=== PATIENT | female | born 1970 | race Caucasian/White ===

== ENCOUNTER 2017-08-26 11:33 | Emergency (ER) | payer OTHER ==
--- NOTE | 2017-08-26 11:57 | CPEKG ---
Heart Rate: 56 RR Interval: 1071 P-R Interval: 148 QRSD Interval: 78 QT Interval: 412 QTC Interval: 398 P [place]: 53 QRS [place]: 19 T Wave [place]: -16 EKG Severity - BORDERLINE ECG - EKG Impression: SINUS RHYTHM EKG Impression: BORDERLINE T ABNORMALITIES, INFERIOR LEADS Electronically Signed By: Constantino Govea 27-Aug-2017 14:27:32
[2017-08-26 12:11] LABS: PLATELET COUNT 286 10^3/uL (150-400)
--- NOTE | 2017-08-26 12:19 | EDPHY ---
H & P Stated Complaint: Palpitations, SOB, LE Swelling Time Seen by Provider: 08/26/17 12:05 HPI/ROS: CHIEF COMPLAINT: Palpitations, chest pain, lower extremity edema HISTORY OF PRESENT ILLNESS: 47-year-old female generally healthy and active, nonsmoker no drug use, complaining of 2 weeks of intermittent palpitations, intermittently bilateral lower extremity edema. She exercises regularly. States that yesterday evening when she was exercising she had to prematurely. Her activity secondary to chest pain and palpitations and dyspnea. No prior history of similar. The lower extremity edema is currently resolved however states that yesterday afternoon he was much more pronounced. Patient does not know whether it is related to dependent position or not. PRIMARY CARE PROVIDER: Dr. Kaycee Romero REVIEW OF SYSTEMS: A ten point review of systems was performed and is negative with the exception of the items mentioned in the HPI PAST MEDICAL & SURGICAL HISTORY: x2 . Otherwise no history of cardiac disease. SOCIAL HISTORY:Nonsmoker. No drug use. Works as a civil engineering manager FAMILY HISTORY: No no further relatives or siblings with premature coronary artery disease or vasculopathy history. PHYSICAL EXAM (Prior to examination, patient consented to physical exam, hands were washed and my usual and customary physical exam procedures followed) 1) GENERAL: Well-developed, well-nourished, alert and oriented. Appears to be in no acute distress. 2) HEAD: Normocephalic, atraumatic 3) HEENT: Pupils equal, round, reactive to light bilaterally. Sclera anicteric. Nasopharynx, oropharynx, clear, no lesions. 4) NECK: Full range of motion, no meningeal signs. No carotid bruit 5) LUNGS: Clear auscultation bilaterally, no wheezes, no rhonchi, no retractions. 6) HEART: Regular rate and rhythm, no murmur, no heave, no gallop. No chest wall pain 7) ABDOMEN: No guarding, no rebound, no focal tenderness, negative McBurney's, negative Chowdhury's, negative Rovsing's, negative peritoneal sign, 8) MUSCULOSKELETAL: Moving all extremities, no focal areas of tenderness, no obvious trauma. No peripheral edema or discoloration. Negative Homans no palpable cord. Normal color and temperature bilaterally. No visible edema. 9) BACK: No CVA tenderness, no midline vertebral tenderness, no fluctuance, no step-off, no obvious trauma, no visual or palpable abnormality. 10) SKIN: No rash, no petechiae. 11) Psychiatric: Patient is oriented X 3, there is no agitation. DIFFERENTIAL DIAGNOSIS: In no particular order, including but not limited to myocardial ischemia, pulmonary embolus, chest wall pain, pleural inflammation and pulmonary infectious causes. - Personal History LMP (Females 10-55): 1-7 Days Ago Current Tetanus Diphtheria and Acellular Pertussis (TDAP): Yes - Medical/Surgical History Hx Asthma: No Hx Chronic Respiratory Disease: No Hx Diabetes: No Hx Cardiac Disease: No Hx Renal Disease: No Hx Cirrhosis: No Hx Alcoholism: No Hx HIV/AIDS: No Hx Splenectomy or Spleen Trauma: No Other PMH: Csection x 2, ACL - Social History Smoking Status: Never smoked Constitutional: Initial Vital Signs Temperature (C) 36.7 C 08/26/17 11:35 Heart Rate 57 L 08/26/17 11:35 Respiratory Rate 18 08/26/17 11:35 Blood Pressure 126/75 H 08/26/17 11:35 O2 Sat (%) 98 08/26/17 11:35 O2 Delivery Mode Room Air Allergies/Adverse Reactions: No Known Allergies Allergy (Unverified 08/26/17 11:34) Home Medications: Medication Instructions Recorded NK [No Known Home Meds] 08/26/17 Medical Decision Making - Diagnostics Imaging Results: Imaging Impressions Chest X-Ray 08/26/17 12:15 Impression: Mild prominence of pulmonary vasculature with some prominence of perihilar interstitial markings. Consider mild fluid overload. Images reviewed by myself ED Course/Re-evaluation: 12:15 p.m.: Will obtain diagnostic studies and re-evaluate. Discussed case with Dr. Constantino Govea in the ER, secondary supervising physician. 1:20 p.m.: Patient was re-evaluated with serial examinations. We discussed her diagnostic results. Doubt acute OK. Discussed with patient her palpitations have been occurring for several weeks however of more concern is the patient's episode last evening where she notes that she was involved in physical activity and had to cease her activity prematurely secondary to palpitations. I think that acute OK is less than likely given her EKG findings , normal troponin. However, I do think that she necessitates further evaluation. I do not think that admission the hospital definitively indicated however this has been offered the patient she prefers to follow up on outpatient basis which I think is an appropriate decision. 1:29 p.m.: Consultation with Cardiology Dr. Chichi Tolbert. Today is Tuesday. I had a lengthy discussion with the patient regarding indications for admission. She currently has a "low" HEART score. Plan will be to have the patient have a treadmill testing on Tuesday or Tuesday. Individuals from [facility] will contact the patient today or Tuesday to set up this appointment. 1:50 p.m.: I discussed this plan with the patient. Patient feels comfortable this plan. Discussed with the patient that she should limit her physical activity. If at any point she develops chest pain syncope, near syncope or any other symptoms that concern her knees call 911 immediately. Feels comfortable with this plan. Usual and customary discharge precautions and instructions provided. - Data Points Laboratory Results: Laboratory Results 08/26/17 11:57 08/26/17 11:57 08/26/17 08/26/17 08/26/17 11:59 11:57 11:57 WBC RBC Hgb Hct MCV MCH MCHC RDW Plt Count MPV Neut % (Auto) Lymph % (Auto) [place] % (Auto) Eos % (Auto) Baso % (Auto) Nucleat RBC Rel Count Absolute Neuts (auto) Absolute Lymphs (auto) Absolute Monos (auto) Absolute Eos (auto) Absolute Basos (auto) Absolute Nucleated RBC Immature Gran % Immature Gran # D-Dimer < 0.27 ug/mLFEU ug/mLFEU (0.00-0.50) Sodium Potassium Chloride Carbon Dioxide Anion Gap BUN Creatinine Estimated GFR Glucose Calcium Troponin I NT-Pro-B Natriuret Pep 34 pg/mL pg/mL (0-125) Beta HCG, Qual NEGATIVE 08/26/17 08/26/17 11:57 11:57 WBC 4.87 10^3/uL 10^3/uL (3.80-9.50) RBC 4.51 10^6/uL 10^6/uL (4.18-5.33) Hgb 15.0 g/dL g/dL (12.6-16.3) Hct 42.8 % % (38.0-47.0) MCV 94.9 fL fL (81.5-99.8) MCH 33.3 pg pg (27.9-34.1) MCHC 35.0 g/dL g/dL (32.4-36.7) RDW 12.0 % % (11.5-15.2) Plt Count 286 10^3/uL 10^3/uL (150-400) MPV 8.8 fL fL (8.7-11.7) Neut % (Auto) 60.1 % % (39.3-74.2) Lymph % (Auto) 32.2 % % (15.0-45.0) [place] % (Auto) 5.7 % % (4.5-13.0) Eos % (Auto) 1.0 % % (0.6-7.6) Baso % (Auto) 0.8 % % (0.3-1.7) Nucleat RBC Rel Count 0.0 % % (0.0-0.2) Absolute Neuts (auto) 2.92 10^3/uL 10^3/uL (1.70-6.50) Absolute Lymphs (auto) 1.57 10^3/uL 10^3/uL (1.00-3.00) Absolute Monos (auto) 0.28 10^3/uL L 10^3/uL (0.30-0.80) Absolute Eos (auto) 0.05 10^3/uL 10^3/uL (0.03-0.40) Absolute Basos (auto) 0.04 10^3/uL 10^3/uL (0.02-0.10) Absolute Nucleated RBC 0.00 10^3/uL 10^3/uL (0-0.01) Immature Gran % 0.2 % % (0.0-1.1) Immature Gran # 0.01 10^3/uL 10^3/uL (0.00-0.10) D-Dimer Sodium 143 mEq/L mEq/L (135-145) Potassium 4.1 mEq/L mEq/L (3.5-5.2) Chloride 104 mEq/L mEq/L (97-110) Carbon Dioxide 26 mEq/l mEq/l (22-31) Anion Gap 13 mEq/L mEq/L (8-16) BUN 13 mg/dL mg/dL (7-23) Creatinine 0.7 mg/dL mg/dL (0.6-1.0) Estimated GFR > 60 Glucose 107 mg/dL H mg/dL (70-100) Calcium 9.8 mg/dL mg/dL (8.5-10.4) Troponin I < 0.012 ng/mL ng/mL (0.000-0.034) NT-Pro-B Natriuret Pep Beta HCG, Qual Departure - Departure Disposition: Home, Routine, Self-Care Clinical Impression: Palpitation Condition: Good Instructions: Heart Palpitations (ED) Additional Instructions: Someone from [facility] will call you today or Tuesday to schedule your treadmill testing. Please limit your physical exertional activity. If any point you develop new or worsening symptoms return to the ER immediately for re- evaluation. Referrals: Chichi Tolbert MD [Medical Doctor] - 08/29/17
[2017-08-26 14:08] VITALS: BP 114/76
== END 2017-08-26 14:08 | disposition home or self-care (01) ==
DX: R00.2 Palpitations (principal)